=== PATIENT | male | born 1965 | race Caucasian/White ===

== ENCOUNTER → 2022-11-09 | Outpatient (CLI) | payer BC ==
--- NOTE | 2022-11-09 15:30 | MR ---
EXAMINATION TYPE: MR knee LT wo con DATE OF EXAM: 11/09/2022 COMPARISON: NONE HISTORY: Left knee pain, locking, and swelling for many years TECHNIQUE: Multiplanar, multisequence images of the knee is performed without IV contrast. FINDINGS: MEDIAL MENISCUS: Medial extrusion medial meniscus with abnormal signal in the horizontal component in the anterior horn. There is abnormal irregular signal posterior horn extending to articular surface. LATERAL MENISCUS: Anterior and posterior horns are intact without tear. CRUCIATE LIGAMENTS: The anterior and posterior cruciate ligaments are intact and unremarkable. COLLATERAL LIGAMENTS: The medial collateral ligament and lateral collateral ligament complex are inta ct. Mild fluid signal surrounds the medial collateral ligament. EXTENSOR MECHANISM: Visualized quadriceps and patellar tendons are intact. EFFUSION: Small size suprapatellar joint effusion. POPLITEAL CYST: No popliteal/castellanos cyst. TRICOMPARTMENT SPACES: Moderate to severe narrowing of patellofemoral compartment with mild spurring. Moderate narrowing and moderate to severe spurring medial and lateral tibiofemoral compartments. CARTILAGE: Significant cartilaginous loss medial tibiofemoral compartment. 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 No full-thickness defects. BONE MARROW SIGNAL: Heterogeneous oval intramedullary lesion of diminished T1 and increased T2 signal in the posterior distal femoral diaphysis measuring 2.9 cm long favoring chondroid lesion, direct co rrelation with plain films advised. OTHER: No additional significant abnormality is appreciated. IMPRESSION: 1. Complex full-thickness tear posterior horn medial meniscus extending through the central body. 2. Tricompartment degenerative changes that are moderate to severe as detailed above. 3. Small suprapatellar joint effusion. 4. Mild MCL sprain injury. 5. Osseous lesion distal femur favors chondroid etiology. Correlate with plain films advised.
== END | disposition home or self-care (01) ==
LOC: RADMRIMAIN 14:06
PROVIDERS: ATTEND Physician Assistant
DX: S83.242A Other tear of medial meniscus, current injury, left knee, initial encounter (principal); S83.412A Sprain of medial collateral ligament of left knee, initial encounter; M17.12 Unilateral primary osteoarthritis, left knee; M89.8X8 Other specified disorders of bone, other site